=== PATIENT | male | born 1980 | race Caucasian/White ===

== ENCOUNTER → 2020-12-04 15:09 | Outpatient (BNVA) | payer OTHER, SELFPAY | PROVIDERS: PCP Internal Medicine; Visit Provider Physician Assistant | DX: M25.812 Other specified joint disorders, left shoulder (principal) | CPT/HCPCS: 73030; 99203 ==

== ENCOUNTER → 2020-12-06 13:46 | Outpatient (BNVA) | payer OTHER, SELFPAY | PROVIDERS: PCP Internal Medicine; Visit Provider Internal Medicine | DX: M75.42 Impingement syndrome of left shoulder (principal) | CPT/HCPCS: 99213 ==

== ENCOUNTER → 2020-12-13 13:38 | Outpatient (BNVA) | payer OTHER, SELFPAY | PROVIDERS: PCP Internal Medicine; Visit Provider Internal Medicine | DX: M75.42 Impingement syndrome of left shoulder (principal) | CPT/HCPCS: 99213 ==

== ENCOUNTER → 2020-12-20 14:36 | Outpatient (BNVA) | payer OTHER, SELFPAY | PROVIDERS: PCP Internal Medicine; Visit Provider Internal Medicine | DX: M25.812 Other specified joint disorders, left shoulder (principal) | CPT/HCPCS: 99213 ==

== ENCOUNTER → 2020-12-27 14:48 | Outpatient (BNVA) | payer OTHER, SELFPAY | PROVIDERS: PCP Internal Medicine; Visit Provider Internal Medicine | DX: M25.812 Other specified joint disorders, left shoulder (principal) | CPT/HCPCS: 99213 ==

== ENCOUNTER → 2021-01-03 14:31 | Outpatient (BNVA) | payer OTHER, SELFPAY | PROVIDERS: PCP Internal Medicine; Visit Provider Physician Assistant Medical | DX: M25.812 Other specified joint disorders, left shoulder (principal) | CPT/HCPCS: 99213 ==

== ENCOUNTER → 2021-01-08 14:04 | Outpatient (BNVA) | payer OTHER, SELFPAY | PROVIDERS: PCP Internal Medicine; Visit Provider Physician Assistant Medical | DX: M75.42 Impingement syndrome of left shoulder (principal) | CPT/HCPCS: 99213 ==

== ENCOUNTER → 2021-01-15 14:16 | Outpatient (BNVA) | payer OTHER, SELFPAY | PROVIDERS: PCP Internal Medicine; Visit Provider Physician Assistant Medical | DX: M24.812 Other specific joint derangements of left shoulder, not elsewhere classified (principal) | CPT/HCPCS: 99213 ==

== ENCOUNTER 2021-01-17 12:00 | Outpatient (RCR) | payer OTHER, SELFPAY ==
--- NOTE | 2020-12-18 15:32 | MHC.PT.EP ---
[facility] [place] [facility] [place] [facility] [place] [facility] [address] [place] [address] [phone] F: [phone] F: [phone] F: [phone] F: [phone] Physical Therapy Plan of Care Date of Evaluation: Date of Surgery: none Diagnosis: shoulder impingment Assessment: Mark arrived s/p a work injury on December 08. 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 He has painful left shoulder movements into flexion and abduction and ER. He has catching. He reports intermittent numbness or tingling into his arm. He reports a burning sensation at end range. He is positive for GH impingement. He will benefit from skilled PT. Frequency and Duration: The patient will be seen 2x/week x 4 weeks Short Term Goals: Pt to be able to report 50% improvement in functional reaching. - Pt to be able to report 50% less pain with getting dressed. Set Off Blocker Goals: 4 weeks - The patient to have greater than 160 degrees of flexion and abduction to show improved functional ROM. 4 weeks ? The patient to have 5/5 strength with flexion and abduction to demonstrate functional strength 4 weeks ? The patient to be able to return to all functional reaching, self care ADL's without any limitation from pain or loss of ROM. Treatment Plan: Modalities to reduce pain, spasms and effusion. Manual therapy to restore motion and function. Therapeutic exercise to improve strength and flexibility. Neuromuscular re-education for posture and balance. Therapeutic activities to return to functional activities of daily living. Electronically signed by: Farida Jansen PT DPT Please sign and return to therapist. Thank you for your referral.
== END 2021-01-22 08:00 | disposition home or self-care (01) ==
LOC: HO.PT 12:00
PROVIDERS: PCP Internal Medicine; Visit Provider Internal Medicine
DX: S46.002D Unspecified injury of muscle(s) and tendon(s) of the rotator cuff of left shoulder, subsequent encounter (principal)
CPT/HCPCS: 97033; 97110; 97162

== ENCOUNTER 2021-01-23 18:01 | Outpatient (REF) | payer OTHER, SELFPAY ==
--- NOTE | ~2021-01-23 | MR_ITS ---
EXAMINATION: MRI LEFT SHOULDER WITHOUT CONTRAST CLINICAL INFORMATION: Impingement syndrome COMPARISON: Radiographs 12/04/2020 TECHNIQUE: MRI of the shoulder without contrast is performed on a 1.5 Netta high-field scanner. FINDINGS: ROTATOR CUFF: Intact. No muscle atrophy or fatty infiltration. BICEPS: Normal. CORACOACROMIAL ARCH: The undersurface of the acromion is curved with no subacromial spur. The acromioclavicular joint is normal. LABRUM/CAPSULE: Normal. GLENOHUMERAL JOINT/MARROW: Small degenerative cyst of the anterior superior humeral head. No joint effusion. ADDITIONAL FINDINGS: None. MR/MR shoulder LT wo con IMPRESSION: Minimal glenohumeral osteoarthritis with a small degenerative cyst. Otherwise unremarkable. No rotator cuff tear.
== END 2021-01-23 18:02 | disposition home or self-care (01) ==
LOC: HO.MRI 18:01
PROVIDERS: PCP Internal Medicine; Visit Provider Internal Medicine
DX: M25.812 Other specified joint disorders, left shoulder (principal)
CPT/HCPCS: 73221

== ENCOUNTER → 2021-01-25 15:02 | Outpatient (BNVA) | payer OTHER, SELFPAY | PROVIDERS: Visit Provider Physician Assistant | DX: M75.42 Impingement syndrome of left shoulder (principal) | CPT/HCPCS: 20610; 99202; J1040 ==

== ENCOUNTER → 2021-03-08 15:29 | Outpatient (BNVA) | payer OTHER, SELFPAY | PROVIDERS: Visit Provider Physician Assistant | DX: M75.42 Impingement syndrome of left shoulder (principal) | CPT/HCPCS: 99212 ==